=== PATIENT | male | born 1955 | race Caucasian/White ===

== ENCOUNTER 2023-10-20 18:36 | Emergency (ER) | payer MEDICARE ==
[~2023-10-20] VITALS: Ht 172.7 cm; Wt 77.1 kg
[2023-10-20 22:30] VITALS: BP 126/76; PULSE 67; RESP 16; O2SAT 98
== END 2023-10-20 22:35 | disposition home or self-care (01) ==
LOC: EDH 18:36
DX: M25.512 Pain in left shoulder (principal); I25.10 Atherosclerotic heart disease of native coronary artery without angina pectoris; E78.00 Pure hypercholesterolemia, unspecified; Z79.01 Long term (current) use of anticoagulants; Z79.899 Other long term (current) drug therapy; W07.XXXA Fall from chair, initial encounter; Y93.89 Activity, other specified; Y92.89 Other specified places as the place of occurrence of the external cause; Y99.8 Other external cause status
CPT/HCPCS: 70450; 93880